=== PATIENT | female | born 1980 | race Caucasian/White ===

== ENCOUNTER 2016-06-20 12:10 | Emergency (ER) | payer SELFPAY ==
[~2016-06-20] VITALS: Ht 157.5 cm; Wt 86.5 kg
[2016-06-20] MEDS ORDERED: IBUP-1509 PO (12:48)
[2016-06-20] MEDS ORDERED: AMOX500T2 PO (12:48)
[2016-06-20 13:00] VITALS: BP 100/73
== END 2016-06-20 16:20 | disposition home or self-care (01) ==
LOC: ER 16:18
DX: J02.9 Acute pharyngitis, unspecified (principal); R03.0 Elevated blood-pressure reading, without diagnosis of hypertension
CPT/HCPCS: 99283; Z7610